=== PATIENT | female | born 1945 | race African-American/Black ===

== ENCOUNTER 2017-02-01 17:44 | Inpatient (IN) | payer MEDICARE, MEDICAID ==
[~2017-02-01] VITALS: Ht 157.5 cm; Wt 115.7 kg
[~2017-02-01 17:44] MED LIST: ACET-3161; ALBU90AE IH; ALLOPURINOL PO; ASPI-1159 PO; CARVEDILOL PO; CLOP75TA33 PO; DUONEB3 ML INH; HYDRALAZINE PO; LIPITOR PO; LORAZEPAM PO; LOSA25TA3 PO; PANTOPRAZOLE SODIUM; PARI1CAP PO; SYN175 PO; VENLAFAXINE; ZOLP5TAB2 PO; [UNRECOGNIZED DRUG - CODE] IJ
[2017-02-01 19:33] LABS: HEMATOCRIT. 33.8 % (36.0-48.0); HEMOGLOBIN. 11.5 g/dL (12.0-16.0); MEAN CORPUSCULAR VOLUME 96.8 fL (81.0-99.0); MEAN PLATELET VOLUME 9.3 fl (7.4-10.4); PLATELET 180 x1000/uL (130-400); RED BLOOD CELL COUNT 3.49 mill/uL (4.2-5.4); RED CELL DISTRIBUTION WIDTH 14.9 % (11.6-14.6)
[2017-02-01 19:42] LABS: INR 1.2
[2017-02-01 19:45] LABS: CHLORIDE 95 mEq/L (98-107)
[2017-02-01 19:50] LABS: CARBON DIOXIDE 25 mEq/L (21-32)
[2017-02-01 19:51] LABS: AMMONIA < 25 uMol/L (<32)
[2017-02-01 19:52] LABS: ETHANOL BLOOD < 10 mg/dL
[2017-02-01 19:58] LABS: TROPONIN I 0.12 ng/mL (0.00-0.04)
[2017-02-01] MEDS ORDERED: DEXTROSE 50% WATER 50ML SYRINGE IV ONE (20:15)
[2017-02-01] MEDS ORDERED: INSULIN REGULAR (HUMULIN R) 300UNITS/3ML IV ONE (20:15)
[2017-02-01] MEDS ORDERED: SODIUM BICARBONATE 8.4% 1 MEQ/ML 50ML SYR IV ONE (20:15)
[2017-02-01] MEDS ORDERED: CALCIUM CHLORIDE 1GM/10ML SYR IV ONE (20:15)
[2017-02-01] MEDS ORDERED: SODIUM POLYSTYRENE SULFONATE 15 G/60 ML BOT PO ONE (20:15)
[2017-02-01] MEDS ORDERED: ASPIRIN 325MG TABLET PO NR (20:15)
[2017-02-01 20:21] LABS: PLATELET ESTIMATE NORMAL
[2017-02-01] MEDS ORDERED: DIPHENHYDRAMINE 50MG/ML VIAL IV PRN (21:30)
[2017-02-01] MEDS ORDERED: CLONIDINE 0.1MG TABLET PO PRN (21:30)
[2017-02-01] MEDS ORDERED: ONDANSETRON HCL 4MG/2ML VIAL IV PRN (21:30)
[2017-02-01] MEDS ORDERED: NA PHOS,M-B/NA PHOS,DI-BA ENEMA 118ML PR PRN (21:30)
[2017-02-01] MEDS ORDERED: DEXTROSE 50% WATER 50ML SYRINGE IV PRN (21:30)
[2017-02-01] MEDS ORDERED: IPRATROPIUM/ALBUTEROL 0.5-3(2.5)MG/3ML NEB INH PRN (21:30)
[2017-02-01] MEDS ORDERED: LORAZEPAM 0.5MG TABLET PO PRN (21:30)
[2017-02-01] MEDS ORDERED: MAGNESIUM/ALUMINUM HYDROXIDE/SIMETHICONE 30ML UDC PO PRN (21:30)
[2017-02-01] MEDS ORDERED: NITROGLYCERIN 0.4MG TABLET SL SL PRN (21:30)
[2017-02-01] MEDS ORDERED: TRAMADOL 50MG TABLET PO PRN (21:30)
[2017-02-01 22:50] VITALS: BP 125/48
[2017-02-01] MEDS ORDERED: ZOLPIDEM TARTRATE 5MG TABLET PO PRN (23:00)
[2017-02-01 23:47] VITALS: BP 125/48
[2017-02-02] MEDS: ENOXAPARIN 30MG/0.3ML SYR SUBCUT SCH ×2 (00:42→22:14)
[2017-02-02] MEDS ORDERED: CEFTRIAXONE 1 G PREMIX 50 ML IV SCH (01:00)
[2017-02-02 01:06] LABS: CREATINE KINASE MB FRACTION 3.2 ng/mL (0.5-3.6); TROPONIN I 0.12 ng/mL (0.00-0.04)
[2017-02-02 04:00] VITALS: BP 135/51
[2017-02-02] MEDS: BLOOD SUGAR DIAGNOSTIC STRIP TEST SCH ×4 (07:40→21:53)
[2017-02-02 08:00] VITALS: BP 130/49
[2017-02-02] MEDS: INSULIN LISPRO 100 UNITS/ML SUBCUT SCH ×4 (08:03→22:15)
[2017-02-02] MEDS: AMLODIPINE 10MG TABLET PO SCH (09:00)
[2017-02-02] MEDS: FOLIC ACID/VITAMIN B COMP W-C TABLET PO SCH (09:57)
[2017-02-02] MEDS: GUAIFENESIN/DM 600MG/30MG ER TAB 12HR PO SCH ×2 (09:57→22:14)
[2017-02-02] MEDS: LEVOTHYROXINE SODIUM 175MCG TABLET PO SCH (09:58)
[2017-02-02] MEDS: CLOPIDOGREL 75MG TABLET PO SCH (09:58)
[2017-02-02] MEDS: ASPIRIN 325MG EC TABLET PO SCH (09:58)
[2017-02-02] MEDS: FAMOTIDINE 20MG/2ML VIAL IV SCH (09:58)
[2017-02-02] MEDS: SEVELAMER CARBONATE 800 MG TABLET PO SCH ×3 (09:58→17:56)
[2017-02-02 10:31] LABS: CREATINE KINASE MB FRACTION 2.1 ng/mL (0.5-3.6); TROPONIN I 0.08 ng/mL (0.00-0.04)
[2017-02-02 12:00] VITALS: BP 151/62
[2017-02-02 15:46] VITALS: BP 137/62
[2017-02-02] MEDS: GUAIFENESIN 200MG/10ML SUGAR FREE UDC PO PRN (17:56)
[2017-02-02 19:30] VITALS: BP 157/66
[2017-02-02 20:00] VITALS: BP_SYST 146; BP_SYST 152; BP_DIAS 52; BP_DIAS 67
[2017-02-02] MEDS: ACETAMINOPHEN 325MG TABLET PO PRN (20:14)
[2017-02-02] MEDS: DOCUSATE SODIUM 100MG CAPSULE PO PRN (22:14)
[2017-02-03] VITALS: BP 121/53
[2017-02-03] MEDS: CEFTRIAXONE 1 G PREMIX 50 ML IV SCH (01:48)
[2017-02-03 04:00] VITALS: BP 140/65
[2017-02-03] MEDS: BLOOD SUGAR DIAGNOSTIC STRIP TEST SCH ×4 (05:44→21:38)
[2017-02-03 08:00] VITALS: BP 129/47
[2017-02-03] MEDS: CLOPIDOGREL 75MG TABLET PO SCH (09:01)
[2017-02-03] MEDS: SEVELAMER CARBONATE 800 MG TABLET PO SCH ×3 (09:01→19:08)
[2017-02-03] MEDS: GUAIFENESIN/DM 600MG/30MG ER TAB 12HR PO SCH ×2 (09:01→20:46)
[2017-02-03] MEDS: ASPIRIN 325MG EC TABLET PO SCH (09:01)
[2017-02-03] MEDS: FOLIC ACID/VITAMIN B COMP W-C TABLET PO SCH (09:01)
[2017-02-03] MEDS: LEVOTHYROXINE SODIUM 175MCG TABLET PO SCH (09:01)
[2017-02-03] MEDS: AMLODIPINE 10MG TABLET PO SCH (09:02)
[2017-02-03] MEDS: FAMOTIDINE 20MG/2ML VIAL IV SCH (09:02)
[2017-02-03] MEDS: INSULIN LISPRO 100 UNITS/ML SUBCUT SCH ×4 (09:07→22:00)
[2017-02-03 12:00] VITALS: BP_SYST 134; BP_SYST 140; BP_DIAS 29; BP_DIAS 48
[2017-02-03 16:00] VITALS: BP 139/59
[2017-02-03] MEDS: ACETAMINOPHEN 325MG TABLET PO PRN (17:33)
[2017-02-03 20:00] VITALS: BP 119/54
[2017-02-03] MEDS: ENOXAPARIN 30MG/0.3ML SYR SUBCUT SCH (20:47)
[2017-02-03] MEDS: DOCUSATE SODIUM 100MG CAPSULE PO PRN (20:47)
[2017-02-04] VITALS: BP 110/50
[2017-02-04] MEDS: CEFTRIAXONE 1 G PREMIX 50 ML IV SCH (00:54)
[2017-02-04 04:00] VITALS: BP 120/51
[2017-02-04] MEDS: BLOOD SUGAR DIAGNOSTIC STRIP TEST SCH ×3 (05:19→17:00)
[2017-02-04 08:00] VITALS: BP 143/57
[2017-02-04] MEDS: FOLIC ACID/VITAMIN B COMP W-C TABLET PO SCH ×2 (10:10→10:13)
[2017-02-04] MEDS: CLOPIDOGREL 75MG TABLET PO SCH ×4 (10:10→11:28)
[2017-02-04] MEDS: DOCUSATE SODIUM 100MG CAPSULE PO PRN (10:10)
[2017-02-04] MEDS: SEVELAMER CARBONATE 800 MG TABLET PO SCH ×3 (10:10→16:37)
[2017-02-04] MEDS: GUAIFENESIN/DM 600MG/30MG ER TAB 12HR PO SCH ×2 (10:10→10:13)
[2017-02-04] MEDS: FAMOTIDINE 20MG/2ML VIAL IV SCH ×2 (10:11→10:13)
[2017-02-04] MEDS: LEVOTHYROXINE SODIUM 175MCG TABLET PO SCH (10:20)
[2017-02-04] MEDS: INSULIN LISPRO 100 UNITS/ML SUBCUT SCH ×3 (10:28→17:01)
[2017-02-04 12:00] VITALS: BP 129/55
[2017-02-04 16:00] VITALS: BP 130/63
[2017-02-04] MEDS: ASPIRIN 325MG EC TABLET PO SCH (16:36)
[2017-02-04] MEDS: AMLODIPINE 10MG TABLET PO SCH (16:37)
[2017-02-04] MEDS: GUAIFENESIN 200MG/10ML SUGAR FREE UDC PO PRN (17:38)
[2017-02-04 17:54] VITALS: BP 130/63
== END 2017-02-04 18:40 | disposition home or self-care (01) | DRG 91 ==
LOC: ER 18:03 → 7WST 20:25 → SUPCPDRO 21:17 → ENRESERV 21:32
PROVIDERS: ADMIT Internal Medicine; ATTEND Internal Medicine
PROC: 5A1D70Z Performance of Urinary Filtration, Intermittent, Less than 6 Hours Per Day (ICD-10-PCS; principal; 2017-02-02)
PROC: 5A1D70Z Performance of Urinary Filtration, Intermittent, Less than 6 Hours Per Day (ICD-10-PCS; 2017-02-04)
DX: G92 Toxic encephalopathy (principal); N18.6 End stage renal disease; I13.2 Hypertensive heart and chronic kidney disease with heart failure and with stage 5 chronic kidney disease, or end stage renal disease; E11.22 Type 2 diabetes mellitus with diabetic chronic kidney disease; E11.65 Type 2 diabetes mellitus with hyperglycemia; E87.1 Hypo-osmolality and hyponatremia; I50.30 Unspecified diastolic (congestive) heart failure; Z68.42 Body mass index [BMI] 45.0-49.9, adult; E03.9 Hypothyroidism, unspecified; E87.70 Fluid overload, unspecified; I25.10 Atherosclerotic heart disease of native coronary artery without angina pectoris; J44.9 Chronic obstructive pulmonary disease, unspecified; E66.9 Obesity, unspecified; D63.8 Anemia in other chronic diseases classified elsewhere; G47.00 Insomnia, unspecified; Z79.82 Long term (current) use of aspirin; Z79.899 Other long term (current) drug therapy; Z99.2 Dependence on renal dialysis
CPT/HCPCS: 36415; 70450; 70551; 71010; 80053; 80061; 80307; 80329; 82140; 82550; 82553; 82962; 83036; 83690; 83880; 84443; 84484; 85025; 85610; 93005; 93970; 99291; G0482; J0696; J1650; J1815; J3490; J7030; J7050

== ENCOUNTER 2018-04-23 09:36 | Inpatient (IN) | payer MEDICARE, MEDICAID ==
[~2018-04-23] VITALS: Ht 154.9 cm; Wt 114.8 kg
[2018-04-23] MEDS ORDERED: IPRATROPIUM BROMIDE (0.02%) 0.5MG/2.5ML NEB HHN STA (10:27)
[2018-04-23] MEDS ORDERED: METHYLPREDNISOLONE SOD SUCC 125 MG/2 ML VIAL IV STA (10:27)
[2018-04-23] MEDS ORDERED: MAGNESIUM 2 G PREMIX 50 ML IV ONE (10:30)
[2018-04-23 10:49] LABS: BASOPHILS % 0.8 % (0.0-2.0); EOSINOPHILS % 2.8 % (0.0-5.0); HEMATOCRIT. 33.4 % (36.0-48.0); HEMOGLOBIN. 11.1 g/dL (12.0-16.0); LYMPHOCYTES % 21.8 % (20.0-50.0); MEAN CORPUSCULAR HEMOGLOBIN 34.1 pg (28.0-32.0); MEAN CORPUSCULAR VOLUME 102.5 fL (81.0-99.0); MONOCYTES % 7.6 % (2.0-8.0); PLATELET 133 x1000/uL (130-400); RED BLOOD CELL COUNT 3.26 mill/uL (4.2-5.4); RED CELL DISTRIBUTION WIDTH 15.4 % (11.6-14.6)
[2018-04-23] MEDS: ALBUTEROL (0.083%) 2.5MG/3ML NEB HHN SCH ×3 (10:49→11:37)
[2018-04-23 10:56] LABS: CHLORIDE 97 mEq/L (98-107)
[2018-04-23] MEDS ORDERED: LEVOFLOXACIN 750MG PREMIX 150 ML IV ONE (12:15)
[2018-04-23] MEDS ORDERED: MAGNESIUM/ALUMINUM HYDROXIDE/SIMETHICONE 30ML UDC PO PRN (12:30)
[2018-04-23] MEDS ORDERED: ENOXAPARIN 40MG/0.4ML SYR SUBCUT SCH (12:30)
[2018-04-23] MEDS ORDERED: ONDANSETRON HCL 4MG/2ML INJ IV PRN (12:30)
[2018-04-23] MEDS ORDERED: GUAIFENESIN 200MG/10ML SUGAR FREE UDC PO PRN (12:30)
[2018-04-23] MEDS ORDERED: METHYLPREDNISOLONE SOD SUCC 125 MG/2 ML VIAL IV SCH (12:30)
[2018-04-23] MEDS ORDERED: LEVOFLOXACIN 500MG PREMIX 100 ML IV SCH (12:30)
[2018-04-23] MEDS ORDERED: DIPHENHYDRAMINE 50MG/ML VIAL IV PRN (12:30)
[2018-04-23] MEDS ORDERED: CLONIDINE 0.1MG TABLET PO PRN (12:30)
[2018-04-23] MEDS ORDERED: IPRATROPIUM/ALBUTEROL 0.5-3(2.5)MG/3ML NEB INH PRN (12:30)
[2018-04-23] MEDS ORDERED: ACETAMINOPHEN 325MG TABLET PO PRN (12:30)
[2018-04-23] MEDS ORDERED: HYDROCODONE/ACETAMINOPHEN 5/325MG TABLET PO PRN (12:30)
[2018-04-23] MEDS ORDERED: DOCUSATE SODIUM 100MG CAPSULE PO PRN (12:30)
[2018-04-23] MEDS ORDERED: LORAZEPAM 2MG/ML CPJ IV PRN (12:30)
[2018-04-23] MEDS: ASPIRIN 81MG EC TABLET PO SCH (12:55)
[2018-04-23] MEDS ORDERED: IPRATROPIUM/ALBUTEROL 0.5-3(2.5)MG/3ML NEB HHN PRN (13:15)
[2018-04-23] MEDS ORDERED: NITROGLYCERIN OINT 1GM/INCH UDPKT TD SCH (14:00)
[2018-04-23] MEDS ORDERED: BUDESONIDE 0.5MG/2ML NEB HHN SCH (16:45)
[2018-04-23] MEDS ORDERED: IPRATROPIUM/ALBUTEROL 0.5-3(2.5)MG/3ML NEB HHN SCH (18:00)
[2018-04-23] MEDS ORDERED: MORPHINE SULFATE 4 MG/ML CPJ (NOT FOR IM USE) IV PRN (19:14)
[2018-04-23] MEDS ORDERED: NA PHOS,M-B/NA PHOS,DI-BA ENEMA 118ML PR PRN (21:00)
[2018-04-23 21:50] VITALS: BP 132/88
[2018-04-23] MEDS: NITROGLYCERIN OINT 1GM/INCH UDPKT TD SCH (23:08)
[2018-04-23] MEDS ORDERED: TRAZ150T78 PO (23:15)
[2018-04-23] MEDS ORDERED: LISI2.5T47 PO (23:18)
[2018-04-23] MEDS ORDERED: METO25TA6 PO (23:18)
[2018-04-24] MEDS ORDERED: TRAZODONE HCL 100MG TABLET PO PRN
[2018-04-24 00:11] VITALS: BP 134/60
[2018-04-24] MEDS: TRAZODONE HCL 100MG TABLET PO SCH ×2 (01:21→22:30)
[2018-04-24 04:00] VITALS: BP 116/43
[2018-04-24] MEDS: IPRATROPIUM/ALBUTEROL 0.5-3(2.5)MG/3ML NEB HHN SCH ×4 (04:07→21:25)
[2018-04-24] MEDS: NITROGLYCERIN OINT 1GM/INCH UDPKT TD SCH ×3 (05:32→22:00)
[2018-04-24] MEDS ORDERED: DEXTROSE 50% WATER 50ML SYRINGE IV PRN (06:45)
[2018-04-24] MEDS: BLOOD SUGAR DIAGNOSTIC STRIP TEST SCH ×4 (07:07→21:04)
[2018-04-24] MEDS: INSULIN LISPRO 100 UNITS/ML SUBCUT SCH ×4 (08:10→21:00)
[2018-04-24] MEDS: BUDESONIDE 0.5MG/2ML NEB HHN SCH ×2 (08:28→21:25)
[2018-04-24] MEDS ORDERED: ENOXAPARIN 30MG/0.3ML SYR SUBCUT SCH (09:00)
[2018-04-24 10:28] LABS: CHLORIDE 102 mEq/L (98-107)
[2018-04-24 10:37] LABS: LDL CHOLESTEROL 156 mg/dL (5-100)
[2018-04-24 10:40] LABS: HDL CHOLESTEROL 66 mg/dL (40-59); T4 FREE 0.28 ng/dL (0.76-1.46)
[2018-04-24 12:00] VITALS: BP 108/66
[2018-04-24] MEDS: LEVOTHYROXINE SODIUM 175MCG TABLET PO SCH (13:49)
[2018-04-24 15:23] LABS: BASOPHILS % 0.4 % (0.0-2.0); EOSINOPHILS % 0.6 % (0.0-5.0); HEMATOCRIT. 30.7 % (36.0-48.0); HEMOGLOBIN. 10.3 g/dL (12.0-16.0); LYMPHOCYTES % 14.9 % (20.0-50.0); MEAN CORPUSCULAR HEMOGLOBIN 34.4 pg (28.0-32.0); MEAN CORPUSCULAR VOLUME 102.6 fL (81.0-99.0); MEAN PLATELET VOLUME 9.9 fl (7.4-10.4); MONOCYTES % 8.6 % (2.0-8.0); NEUTROPHILS % 75.5 % (40.0-76.0); PLATELET 129 x1000/uL (130-400); RED BLOOD CELL COUNT 2.99 mill/uL (4.2-5.4); RED CELL DISTRIBUTION WIDTH 15.4 % (11.6-14.6)
[2018-04-24 16:00] VITALS: BP_SYST 113; BP_SYST 95; BP_DIAS 29; BP_DIAS 52
[2018-04-24 20:00] VITALS: BP 97/47
[2018-04-25] VITALS: BP 110/60
[2018-04-25] MEDS: IPRATROPIUM/ALBUTEROL 0.5-3(2.5)MG/3ML NEB HHN SCH ×4 (01:25→21:43)
[2018-04-25 04:00] VITALS: BP 108/49
[2018-04-25] MEDS: NITROGLYCERIN OINT 1GM/INCH UDPKT TD SCH (06:00)
[2018-04-25] MEDS: LEVOTHYROXINE SODIUM 175MCG TABLET PO SCH (06:30)
[2018-04-25] MEDS: BLOOD SUGAR DIAGNOSTIC STRIP TEST SCH ×4 (06:30→21:19)
[2018-04-25] MEDS: INSULIN LISPRO 100 UNITS/ML SUBCUT SCH ×4 (06:31→21:00)
[2018-04-25] MEDS: BUDESONIDE 0.5MG/2ML NEB HHN SCH ×2 (07:38→21:43)
[2018-04-25 08:00] VITALS: BP 114/44
[2018-04-25] MEDS: ASPIRIN 81MG EC TABLET PO SCH (08:21)
[2018-04-25] MEDS ORDERED: ENOXAPARIN 40MG/0.4ML SYR SUBCUT SCH (09:00)
[2018-04-25 12:00] VITALS: BP 113/42
[2018-04-25 12:19] VITALS: BP 113/42
[2018-04-25 20:00] VITALS: BP 131/49
[2018-04-25] MEDS ORDERED: AMLODIPINE 2.5MG TABLET PO SCH (21:00)
[2018-04-25] MEDS: TRAZODONE HCL 100MG TABLET PO SCH (21:19)
[2018-04-26] VITALS: BP 104/39
[2018-04-26 01:42] LABS: BASOPHILS % 0.7 % (0.0-2.0); EOSINOPHILS % 2.4 % (0.0-5.0); HEMATOCRIT. 25.3 % (36.0-48.0); HEMOGLOBIN. 8.5 g/dL (12.0-16.0); LYMPHOCYTES % 27.3 % (20.0-50.0); MEAN CORPUSCULAR HEMOGLOBIN 35.1 pg (28.0-32.0); MEAN CORPUSCULAR VOLUME 103.9 fL (81.0-99.0); MEAN PLATELET VOLUME 10.1 fl (7.4-10.4); MONOCYTES % 10.9 % (2.0-8.0); NEUTROPHILS % 58.7 % (40.0-76.0); PLATELET 106 x1000/uL (130-400); RED BLOOD CELL COUNT 2.44 mill/uL (4.2-5.4); RED CELL DISTRIBUTION WIDTH 15.5 % (11.6-14.6)
[2018-04-26] MEDS: IPRATROPIUM/ALBUTEROL 0.5-3(2.5)MG/3ML NEB HHN SCH ×2 (02:35→07:53)
[2018-04-26 04:00] VITALS: BP 110/63
[2018-04-26] MEDS: BLOOD SUGAR DIAGNOSTIC STRIP TEST SCH (06:20)
[2018-04-26] MEDS: INSULIN LISPRO 100 UNITS/ML SUBCUT SCH (06:20)
[2018-04-26] MEDS ORDERED: LEVOTHYROXINE SODIUM 200MCG TABLET PO SCH (07:40)
[2018-04-26] MEDS: BUDESONIDE 0.5MG/2ML NEB HHN SCH (07:53)
[2018-04-26 08:00] VITALS: BP 104/46
[2018-04-26] MEDS: ASPIRIN 81MG EC TABLET PO SCH (09:21)
[2018-04-26 11:14] VITALS: BP 104/46
[2018-04-26 12:00] VITALS: BP 110/43
== END 2018-04-26 12:55 | disposition home or self-care (01) | DRG 291 ==
LOC: ER 09:56 → 7WST 12:09 → ENRESERV 20:30
PROVIDERS: ADMIT Internal Medicine; ATTEND Internal Medicine
PROC: 5A1D70Z Performance of Urinary Filtration, Intermittent, Less than 6 Hours Per Day (ICD-10-PCS; 2018-04-23)
PROC: 5A1D70Z Performance of Urinary Filtration, Intermittent, Less than 6 Hours Per Day (ICD-10-PCS; 2018-04-24)
PROC: 5A1D70Z Performance of Urinary Filtration, Intermittent, Less than 6 Hours Per Day (ICD-10-PCS; principal; 2018-04-25)
DX: I13.2 Hypertensive heart and chronic kidney disease with heart failure and with stage 5 chronic kidney disease, or end stage renal disease (principal); J96.00 Acute respiratory failure, unspecified whether with hypoxia or hypercapnia; N18.6 End stage renal disease; I50.43 Acute on chronic combined systolic (congestive) and diastolic (congestive) heart failure; R65.10 Systemic inflammatory response syndrome (SIRS) of non-infectious origin without acute organ dysfunction; E46 Unspecified protein-calorie malnutrition; J44.1 Chronic obstructive pulmonary disease with (acute) exacerbation; Z68.42 Body mass index [BMI] 45.0-49.9, adult; E78.5 Hyperlipidemia, unspecified; I27.20 Pulmonary hypertension, unspecified; E66.09 Other obesity due to excess calories; E11.22 Type 2 diabetes mellitus with diabetic chronic kidney disease; E89.0 Postprocedural hypothyroidism; H54.62 Unqualified visual loss, left eye, normal vision right eye; H91.90 Unspecified hearing loss, unspecified ear; D63.8 Anemia in other chronic diseases classified elsewhere; I08.1 Rheumatic disorders of both mitral and tricuspid valves; I25.10 Atherosclerotic heart disease of native coronary artery without angina pectoris; I25.5 Ischemic cardiomyopathy; M19.90 Unspecified osteoarthritis, unspecified site; Z79.4 Long term (current) use of insulin; Z86.73 Personal history of transient ischemic attack (TIA), and cerebral infarction without residual deficits; I25.2 Old myocardial infarction; Z87.440 Personal history of urinary (tract) infections; Z95.5 Presence of coronary angioplasty implant and graft; Z99.2 Dependence on renal dialysis; Z79.82 Long term (current) use of aspirin; Z79.899 Other long term (current) drug therapy
CPT/HCPCS: 36415; 71045; 80048; 80061; 82962; 83880; 84439; 84443; 84484; 87804; 93005; 93306; 94003; 94640; 96365; 96375; 99285; J1650; J1815; J1956; J2930; J3475; J7611; J7620; J7626

== ENCOUNTER 2018-09-25 09:15 | Emergency (ER) | payer MEDICARE, MEDICAID ==
[~2018-09-25] VITALS: Ht 162.6 cm; Wt 112.0 kg
[~2018-09-25 09:15] MED LIST changes: -ASPI-1159 PO; +ASPI-1393 PO; +LISI2.5T47 PO; +METO25TA6 PO; +TRAZ150T78 PO; -ZOLP5TAB2 PO
[2018-09-25 10:53] LABS: BASOPHILS % 0.9 % (0.0-2.0); EOSINOPHILS % 1.2 % (0.0-5.0); HEMATOCRIT. 34.8 % (36.0-48.0); HEMOGLOBIN. 11.5 g/dL (12.0-16.0); LYMPHOCYTES % 15.6 % (20.0-50.0); MEAN CORPUSCULAR HEMOGLOBIN 34.1 pg (28.0-32.0); MEAN CORPUSCULAR VOLUME 103.5 fL (81.0-99.0); MEAN PLATELET VOLUME 10.6 fl (7.4-10.4); MONOCYTES % 9.7 % (2.0-8.0); NEUTROPHILS % 72.6 % (40.0-76.0); PLATELET 74 x1000/uL (130-400); RED BLOOD CELL COUNT 3.36 mill/uL (4.2-5.4); RED CELL DISTRIBUTION WIDTH 17.9 % (11.6-14.6)
[2018-09-25 10:58] LABS: CHLORIDE 93 mEq/L (98-107)
[2018-09-25 10:59] LABS: INR 1.2; PROTHROMBIN TIME 12.7 sec (9.6-11.0)
[2018-09-25 12:35] VITALS: BP 128/72
== END 2018-09-25 12:39 | disposition home or self-care (01) ==
LOC: ER 09:15
DX: S80.821A Blister (nonthermal), right lower leg, initial encounter (principal); R10.9 Unspecified abdominal pain; I13.2 Hypertensive heart and chronic kidney disease with heart failure and with stage 5 chronic kidney disease, or end stage renal disease; E11.22 Type 2 diabetes mellitus with diabetic chronic kidney disease; N18.6 End stage renal disease; I50.9 Heart failure, unspecified; Z99.2 Dependence on renal dialysis; R60.0 Localized edema; F03.90 Unspecified dementia, unspecified severity, without behavioral disturbance, psychotic disturbance, mood disturbance, and anxiety; N28.1 Cyst of kidney, acquired; E87.3 Alkalosis; D69.6 Thrombocytopenia, unspecified; D53.9 Nutritional anemia, unspecified; Z79.899 Other long term (current) drug therapy; Z90.89 Acquired absence of other organs; Z79.82 Long term (current) use of aspirin; X58.XXXA Exposure to other specified factors, initial encounter; Y93.89 Activity, other specified; Y92.89 Other specified places as the place of occurrence of the external cause; Y99.8 Other external cause status
CPT/HCPCS: 36415; 71045; 74176; 93005; 99284

== ENCOUNTER 2018-12-18 10:43 | Inpatient (IN) | payer MEDICARE, MEDICAID ==
[~2018-12-18] VITALS: Ht 167.6 cm; Wt 116.1 kg
[2018-12-18] VITALS (22 sets, daily range): BP systolic 66–148; BP diastolic 18–95
[2018-12-18] MEDS ORDERED: GENTAMICIN 80MG PREMIX 100 ML IV ONE (11:15)
[2018-12-18] MEDS: VANCOMYCIN 1 G PREMIX 200 ML IV SCH ×2 (11:20→11:40)
[2018-12-18 11:30] LABS: EOSINOPHILS % 1.6 % (0.0-5.0); HEMATOCRIT. 39.7 % (36.0-48.0); HEMOGLOBIN. 13.1 g/dL (12.0-16.0); LYMPHOCYTES % 14.9 % (20.0-50.0); MEAN CORPUSCULAR HEMOGLOBIN 33.9 pg (28.0-32.0); MEAN CORPUSCULAR VOLUME 103.1 fL (81.0-99.0); MEAN PLATELET VOLUME 10.2 fl (7.4-10.4); NEUTROPHILS % 71.5 % (40.0-76.0); PLATELET 121 x1000/uL (130-400); RED BLOOD CELL COUNT 3.86 mill/uL (4.2-5.4); RED CELL DISTRIBUTION WIDTH 18.6 % (11.6-14.6)
[2018-12-18 11:35] LABS: CHLORIDE 102 mEq/L (98-107)
[2018-12-18 11:41] LABS: PHOSPHORUS 5.7 mg/dL (2.5-4.9)
[2018-12-18] MEDS ORDERED: SODIUM CHLORIDE 0.9% 1000ML BAG (SEPSIS BOLUS) IV ONE (12:00)
[2018-12-18 12:39] LABS: INR 1.2; PROTHROMBIN TIME 12.8 sec (9.6-11.0)
[2018-12-18] MEDS ORDERED: INFLUENZA VIRUS VACCINE(AFLURIA) 0.5ML SYR IM ONE (16:45)
[2018-12-18] MEDS ORDERED: DEXTROSE 50% WATER 50ML SYRINGE IV PRN ×2 (18:00)
[2018-12-18] MEDS ORDERED: ACETAMINOPHEN 325MG TABLET PO PRN (18:00)
[2018-12-18] MEDS ORDERED: MAGNESIUM/ALUMINUM HYDROXIDE/SIMETHICONE 30ML UDC PO PRN (18:00)
[2018-12-18] MEDS ORDERED: ONDANSETRON HCL 4MG/2ML INJ IV PRN (18:00)
[2018-12-18] MEDS ORDERED: NOREPINEPHRINE 4 MG in DEXT 5% WATER 246 ML IV PRN (18:03)
[2018-12-18 18:09] LABS: BG BASE EXCESS -3.9 mmol/L (-2.0-2.0); BG CARBOXYHEMOGLOBIN 1.5 % (0.5-1.5); BG DEOXYHEMOGLOBIN 0.8 % (0.0-5.0); BG FRACTION INSPIRED OXYGEN 32; BG HCO3 ACT 20.2 mmol/L (22.0-26.0); BG METHEMOGLOBIN 0.3 % (0.0-1.5); BG OXYGEN SATURATION 99.2 % (92.0-98.5); BG OXYHEMOGLOBIN 97.4 % (94.0-97.0); BG PCO2 34.1 mmHg (35.0-45.0); BG PH 7.391 (7.350-7.450); BG PO2 171.8 mmHg (75.0-100.0); BG SAMPLE SITE LEFT RADIAL; BG TOTAL HEMOGLOBIN 13.4 g/dL (12.0-18.0); BG VENT MODE NASAL CANNULA
[2018-12-18] MEDS ORDERED: PIPERACILLIN/TAZOBACTAM 3.375 G in DEXT 5% WATER 100 ML IV SCH (18:15)
[2018-12-18] MEDS ORDERED: SODIUM POLYSTYRENE SULFONATE 15 G/60 ML BOT PO NR (19:00)
[2018-12-18] MEDS ORDERED: PIPERACILLIN/TAZOBACTAM 3.375 G in DEXT 5% WATER 100 ML IV NR (19:00)
[2018-12-18] MEDS: NOREPINEPHRINE 4 MG in DEXTROSE 5% WATER 250 ML IV PRN ×2 (19:45→19:47)
[2018-12-18] MEDS ORDERED: VANCOMYCIN 1 G PREMIX 200 ML IV NR (20:00)
[2018-12-18] MEDS: BLOOD SUGAR DIAGNOSTIC STRIP TEST SCH (21:24)
[2018-12-18] MEDS: INSULIN LISPRO 100 UNITS/ML SUBCUT SCH (21:24)
[2018-12-18] MEDS ORDERED: DILTIAZEM HCL 5MG/ML 5ML VIAL IV NR (22:00)
[2018-12-18] MEDS ORDERED: DILTIAZEM HCL 125 MG in DEXT 5% WATER 100 ML IV PRN (22:00)
[2018-12-18] MEDS ORDERED: MORPHINE SULFATE 2 MG/ML CPJ (NOT FOR IM USE) IV PRN (22:00)
[2018-12-19] VITALS (89 sets, daily range): BP systolic 53–153; BP diastolic 32–92
[2018-12-19] MEDS: PIPERACILLIN/TAZOBACTAM 2.25 G in DEXTROSE 5% WATER 50 ML IV SCH ×3 (04:05→20:21)
[2018-12-19 06:22] LABS: BASOPHILS % 0.9 % (0.0-2.0); EOSINOPHILS % 2.3 % (0.0-5.0); HEMOGLOBIN. 12.3 g/dL (12.0-16.0); LYMPHOCYTES % 16.1 % (20.0-50.0); MEAN CORPUSCULAR HEMOGLOBIN 33.8 pg (28.0-32.0); MEAN CORPUSCULAR VOLUME 101.9 fL (81.0-99.0); MEAN PLATELET VOLUME 10.9 fl (7.4-10.4); MONOCYTES % 10.1 % (2.0-8.0); NEUTROPHILS % 70.6 % (40.0-76.0); PLATELET 148 x1000/uL (130-400); RED BLOOD CELL COUNT 3.63 mill/uL (4.2-5.4); RED CELL DISTRIBUTION WIDTH 18.4 % (11.6-14.6)
[2018-12-19] MEDS: BLOOD SUGAR DIAGNOSTIC STRIP TEST SCH ×4 (07:50→21:28)
[2018-12-19] MEDS ORDERED: LEVOTHYROXINE SODIUM 175MCG TABLET PO SCH (09:00)
[2018-12-19] MEDS: INSULIN LISPRO 100 UNITS/ML SUBCUT SCH ×4 (09:16→21:27)
[2018-12-19] MEDS ORDERED: LEVOTHYROXINE SODIUM 200MCG TABLET PO SCH (09:30)
[2018-12-19] MEDS: NOREPINEPHRINE 4 MG in DEXTROSE 5% WATER 250 ML IV PRN ×2 (09:49→18:16)
[2018-12-19] MEDS ORDERED: AMIODARONE HCL 900 MG in DEXT 5% WATER 482 ML IV PRN (10:45)
[2018-12-19] MEDS: AMIODARONE HCL 900 MG in DEXT 5% WATER 482 ML IV SCH (12:45)
[2018-12-20] VITALS (100 sets, daily range): BP systolic 67–181; BP diastolic 25–157
[2018-12-20] MEDS: PIPERACILLIN/TAZOBACTAM 2.25 G in DEXTROSE 5% WATER 50 ML IV SCH ×3 (03:17→21:21)
[2018-12-20] MEDS: NOREPINEPHRINE 4 MG in DEXTROSE 5% WATER 250 ML IV PRN (05:10)
[2018-12-20 06:10] LABS: BASOPHILS % 1.2 % (0.0-2.0); EOSINOPHILS % 2.1 % (0.0-5.0); HEMATOCRIT. 37.1 % (36.0-48.0); HEMOGLOBIN. 12.3 g/dL (12.0-16.0); LYMPHOCYTES % 18.1 % (20.0-50.0); MEAN CORPUSCULAR HEMOGLOBIN 33.9 pg (28.0-32.0); MEAN CORPUSCULAR VOLUME 102.3 fL (81.0-99.0); MEAN PLATELET VOLUME 10.7 fl (7.4-10.4); MONOCYTES % 12.1 % (2.0-8.0); NEUTROPHILS % 66.5 % (40.0-76.0); PLATELET 125 x1000/uL (130-400); RED BLOOD CELL COUNT 3.62 mill/uL (4.2-5.4); RED CELL DISTRIBUTION WIDTH 18.7 % (11.6-14.6)
[2018-12-20 06:29] LABS: PHOSPHORUS 6.3 mg/dL (2.5-4.9)
[2018-12-20] MEDS: BLOOD SUGAR DIAGNOSTIC STRIP TEST SCH ×4 (07:58→21:19)
[2018-12-20] MEDS: INSULIN LISPRO 100 UNITS/ML SUBCUT SCH ×4 (07:59→21:00)
[2018-12-20] MEDS: AMIODARONE HCL 900 MG in DEXT 5% WATER 482 ML IV SCH (08:02)
[2018-12-20] MEDS: LIOTHYRONINE SODIUM 5MCG TABLET PO SCH ×2 (09:00→18:02)
[2018-12-20] MEDS: LEVOTHYROXINE SODIUM 100 MCG/ VIAL IV SCH (09:23)
[2018-12-20] MEDS ORDERED: NOREPINEPHRINE 4 MG in DEXT 5% WATER 246 ML IV PRN (10:29)
[2018-12-20] MEDS ORDERED: AMIODARONE HCL 900 MG in DEXT 5% WATER 482 ML IV SCH (10:30)
[2018-12-20] MEDS: DEXT 5%/0.45% NACL 1000ML 1,000 ML IV SCH (21:22)
[2018-12-21] VITALS (69 sets, daily range): BP systolic 52–126; BP diastolic 25–87
[2018-12-21] MEDS: PIPERACILLIN/TAZOBACTAM 2.25 G in DEXTROSE 5% WATER 50 ML IV SCH ×2 (04:37→12:21)
[2018-12-21 07:08] LABS: BASOPHILS % 0.7 % (0.0-2.0); EOSINOPHILS % 0.9 % (0.0-5.0); HEMATOCRIT. 39.3 % (36.0-48.0); HEMOGLOBIN. 12.8 g/dL (12.0-16.0); LYMPHOCYTES % 17.6 % (20.0-50.0); MEAN CORPUSCULAR HEMOGLOBIN 33.6 pg (28.0-32.0); MEAN CORPUSCULAR VOLUME 102.9 fL (81.0-99.0); MEAN PLATELET VOLUME 11.3 fl (7.4-10.4); NEUTROPHILS % 69.8 % (40.0-76.0); PLATELET 118 x1000/uL (130-400); RED BLOOD CELL COUNT 3.82 mill/uL (4.2-5.4); RED CELL DISTRIBUTION WIDTH 19.4 % (11.6-14.6)
[2018-12-21 07:12] LABS: PHOSPHORUS 7.1 mg/dL (2.5-4.9)
[2018-12-21] MEDS: BLOOD SUGAR DIAGNOSTIC STRIP TEST SCH ×4 (07:50→21:31)
[2018-12-21] MEDS: INSULIN LISPRO 100 UNITS/ML SUBCUT SCH ×4 (08:20→21:00)
[2018-12-21] MEDS: LEVOTHYROXINE SODIUM 100 MCG/ VIAL IV SCH (10:35)
[2018-12-21] MEDS: LIOTHYRONINE SODIUM 5MCG TABLET PO SCH ×2 (12:46→17:45)
[2018-12-21] MEDS: AMIODARONE HCL 200 MG TABLET PO SCH ×2 (12:47→21:33)
[2018-12-21 13:49] LABS: HEMATOCRIT. 38.2 % (36.0-48.0); HEMOGLOBIN. 12.6 g/dL (12.0-16.0); MEAN CORPUSCULAR HEMOGLOBIN 34.1 pg (28.0-32.0); MEAN CORPUSCULAR VOLUME 102.9 fL (81.0-99.0); MEAN PLATELET VOLUME 10.6 fl (7.4-10.4); PLATELET 94 x1000/uL (130-400); RED BLOOD CELL COUNT 3.71 mill/uL (4.2-5.4); RED CELL DISTRIBUTION WIDTH 18.3 % (11.6-14.6)
[2018-12-21 14:15] LABS: PLATELET ESTIMATE DECREASED
[2018-12-22] VITALS (38 sets, daily range): BP systolic 61–125; BP diastolic 27–92
[2018-12-22] MEDS: DEXT 5%/0.45% NACL 1000ML 1,000 ML IV SCH ×2 (00:15→19:20)
[2018-12-22] MEDS: BLOOD SUGAR DIAGNOSTIC STRIP TEST SCH ×5 (07:00→20:01)
[2018-12-22 07:19] LABS: CHLORIDE 103 mEq/L (98-107)
[2018-12-22 08:33] LABS: BG BASE EXCESS -5.9 mmol/L (-2.0-2.0); BG CARBOXYHEMOGLOBIN 1.2 % (0.5-1.5); BG DEOXYHEMOGLOBIN 7.5 % (0.0-5.0); BG FRACTION INSPIRED OXYGEN 21; BG HCO3 ACT 19.2 mmol/L (22.0-26.0); BG METHEMOGLOBIN 0.1 % (0.0-1.5); BG OXYGEN SATURATION 92.4 % (92.0-98.5); BG OXYHEMOGLOBIN 91.2 % (94.0-97.0); BG PCO2 36.4 mmHg (35.0-45.0); BG PO2 70.1 mmHg (75.0-100.0); BG SAMPLE SITE RIGHT BRACHIAL; BG VENT MODE ROOM AIR
[2018-12-22] MEDS: LIOTHYRONINE SODIUM 5MCG TABLET PO SCH ×2 (08:40→18:15)
[2018-12-22] MEDS: AMIODARONE HCL 200 MG TABLET PO SCH ×2 (08:40→20:00)
[2018-12-22] MEDS: INSULIN LISPRO 100 UNITS/ML SUBCUT SCH ×4 (08:42→20:01)
[2018-12-22] MEDS: LEVOTHYROXINE SODIUM 100 MCG/ VIAL IV SCH (10:25)
[2018-12-22] MEDS ORDERED: VANCOMYCIN 1250MG in DEXTROSE 5% WATER 250ML IV NR (12:00)
[2018-12-23] VITALS (12 sets, daily range): BP systolic 86–124; BP diastolic 35–76
[2018-12-23] MEDS: DEXT 5%/0.45% NACL 1000ML 1,000 ML IV SCH ×2 (00:25→21:22)
[2018-12-23] MEDS: BLOOD SUGAR DIAGNOSTIC STRIP TEST SCH ×4 (06:02→21:21)
[2018-12-23 08:06] LABS: BASOPHILS % 0.8 % (0.0-2.0); EOSINOPHILS % 2.1 % (0.0-5.0); LYMPHOCYTES % 13.4 % (20.0-50.0); MEAN CORPUSCULAR HEMOGLOBIN 33.6 pg (28.0-32.0); MEAN CORPUSCULAR VOLUME 103.9 fL (81.0-99.0); MONOCYTES % 11.4 % (2.0-8.0); NEUTROPHILS % 72.3 % (40.0-76.0); PLATELET 81 x1000/uL (130-400); RED BLOOD CELL COUNT 3.85 mill/uL (4.2-5.4); RED CELL DISTRIBUTION WIDTH 19.7 % (11.6-14.6)
[2018-12-23] MEDS: LIOTHYRONINE SODIUM 5MCG TABLET PO SCH ×2 (09:13→17:34)
[2018-12-23] MEDS: AMIODARONE HCL 200 MG TABLET NG SCH ×2 (09:13→21:21)
[2018-12-23] MEDS: INSULIN LISPRO 100 UNITS/ML SUBCUT SCH ×4 (09:13→21:22)
[2018-12-23] MEDS ORDERED: HEPARIN SODIUM 1,000 UNIT/1ML VIAL IV NR (11:00)
[2018-12-23] MEDS: LEVOTHYROXINE SODIUM 100 MCG/ VIAL IV SCH (18:00)
[2018-12-24] VITALS (12 sets, daily range): BP systolic 97–119; BP diastolic 50–82
[2018-12-24 05:52] LABS: BASOPHILS % 0.9 % (0.0-2.0); EOSINOPHILS % 2.4 % (0.0-5.0); HEMATOCRIT. 37.7 % (36.0-48.0); HEMOGLOBIN. 12.4 g/dL (12.0-16.0); LYMPHOCYTES % 12.8 % (20.0-50.0); MEAN CORPUSCULAR HEMOGLOBIN 33.9 pg (28.0-32.0); MEAN CORPUSCULAR VOLUME 102.6 fL (81.0-99.0); MEAN PLATELET VOLUME 10.6 fl (7.4-10.4); MONOCYTES % 11.8 % (2.0-8.0); NEUTROPHILS % 72.1 % (40.0-76.0); PLATELET 74 x1000/uL (130-400); RED BLOOD CELL COUNT 3.67 mill/uL (4.2-5.4); RED CELL DISTRIBUTION WIDTH 19.6 % (11.6-14.6)
[2018-12-24] MEDS: BLOOD SUGAR DIAGNOSTIC STRIP TEST SCH ×4 (06:42→21:19)
[2018-12-24] MEDS: INSULIN LISPRO 100 UNITS/ML SUBCUT SCH ×4 (06:42→21:19)
[2018-12-24] MEDS: LIOTHYRONINE SODIUM 5MCG TABLET PO SCH ×2 (09:25→17:24)
[2018-12-24] MEDS: AMIODARONE HCL 200 MG TABLET NG SCH ×2 (09:25→21:17)
[2018-12-24] MEDS: LEVOTHYROXINE SODIUM 100 MCG/ VIAL IV SCH (09:25)
[2018-12-24] MEDS: DEXT 5%/0.45% NACL 1000ML 1,000 ML IV SCH (23:20)
[2018-12-25] VITALS (16 sets, daily range): BP systolic 80–133; BP diastolic 45–98
[2018-12-25] MEDS: BLOOD SUGAR DIAGNOSTIC STRIP TEST SCH ×4 (06:41→20:43)
[2018-12-25] MEDS: INSULIN LISPRO 100 UNITS/ML SUBCUT SCH ×4 (07:20→20:42)
[2018-12-25] MEDS: LIOTHYRONINE SODIUM 5MCG TABLET PO SCH ×2 (08:49→16:49)
[2018-12-25] MEDS: AMIODARONE HCL 200 MG TABLET NG SCH ×2 (08:49→20:43)
[2018-12-25] MEDS: LEVOTHYROXINE SODIUM 100 MCG/ VIAL IV SCH (13:15)
[2018-12-25] MEDS: DEXT 5%/0.45% NACL 1000ML 1,000 ML IV SCH (15:31)
[2018-12-26] VITALS (17 sets, daily range): BP systolic 84–142; BP diastolic 37–85
[2018-12-26] MEDS: BLOOD SUGAR DIAGNOSTIC STRIP TEST SCH ×4 (07:01→21:00)
[2018-12-26 07:21] LABS: BASOPHILS % 1.1 % (0.0-2.0); EOSINOPHILS % 3.8 % (0.0-5.0); HEMOGLOBIN. 12.9 g/dL (12.0-16.0); LYMPHOCYTES % 20.6 % (20.0-50.0); MEAN CORPUSCULAR HEMOGLOBIN 33.8 pg (28.0-32.0); MEAN CORPUSCULAR VOLUME 102.2 fL (81.0-99.0); MEAN PLATELET VOLUME 11.9 fl (7.4-10.4); MONOCYTES % 14.1 % (2.0-8.0); NEUTROPHILS % 60.4 % (40.0-76.0); PLATELET 73 x1000/uL (130-400); RED BLOOD CELL COUNT 3.81 mill/uL (4.2-5.4); RED CELL DISTRIBUTION WIDTH 19.8 % (11.6-14.6)
[2018-12-26] MEDS: LIOTHYRONINE SODIUM 5MCG TABLET PO SCH ×2 (08:33→18:48)
[2018-12-26] MEDS: LEVOTHYROXINE SODIUM 100 MCG/ VIAL IV SCH (08:33)
[2018-12-26] MEDS: AMIODARONE HCL 200 MG TABLET NG SCH ×2 (08:33→21:00)
[2018-12-26] MEDS: INSULIN LISPRO 100 UNITS/ML SUBCUT SCH ×4 (08:35→21:38)
[2018-12-26] MEDS: DEXT 5%/0.45% NACL 1000ML 1,000 ML IV SCH (09:08)
[2018-12-26] MEDS ORDERED: DEXTROSE 50% WATER 50ML SYRINGE IV PRN (09:45)
[2018-12-26] MEDS ORDERED: LIDOCAINE HCL 1% 20ML VIAL (Pyxis) INJ ONE (09:58)
[2018-12-26] MEDS ORDERED: SODIUM BICARBONATE 4% (2.4MEQ) 5ML VIAL IV ONE (09:58)
[2018-12-26] MEDS ORDERED: IOHEXOL-300 50 ML BOTTLE IV ONE (09:59)
[2018-12-26 10:08] LABS: T4 FREE 1.01 ng/dL (0.76-1.46)
[2018-12-26] MEDS ORDERED: HEPARIN 1000 UNITS/ML 10ML ONE (10:19)
[2018-12-26 10:35] LABS: FOLIC ACID (FOLATE) SERUM > 20.00 ng/mL (>5.38); VITAMIN B12 SERUM > 2000.0 pg/mL (211-911)
[2018-12-26] MEDS: ASPIRIN 81MG EC TABLET PO SCH (13:02)
[2018-12-26] MEDS: CARVEDILOL 3.125 MG TABLET PO SCH ×2 (13:02→21:00)
[2018-12-26] MEDS ORDERED: VANCOMYCIN 1250MG in DEXTROSE 5% WATER 250ML IV NR (21:00)
[2018-12-26] MEDS ORDERED: ATORVASTATIN CALCIUM 40MG TABLET PO SCH (21:00)
[2018-12-26] MEDS ORDERED: INSULIN GLARGINE UD 100 UNITS/ML SYR SUBCUT SCH (22:00)
[2018-12-26] MEDS ORDERED: ALBUMIN HUMAN 25GM/100ML (25%) IV NR (22:00)
[2018-12-27] VITALS (11 sets, daily range): BP systolic 92–136; BP diastolic 40–98
[2018-12-27] MEDS: BLOOD SUGAR DIAGNOSTIC STRIP TEST SCH ×3 (06:06→16:45)
[2018-12-27] MEDS: LIOTHYRONINE SODIUM 5MCG TABLET PO SCH ×2 (08:43→16:45)
[2018-12-27] MEDS: AMIODARONE HCL 200 MG TABLET NG SCH (08:43)
[2018-12-27] MEDS: ASPIRIN 81MG EC TABLET PO SCH (08:43)
[2018-12-27] MEDS: LEVOTHYROXINE SODIUM 100 MCG/ VIAL IV SCH (08:44)
[2018-12-27] MEDS: INSULIN LISPRO 100 UNITS/ML SUBCUT SCH ×3 (08:58→17:20)
[2018-12-27] MEDS: CARVEDILOL 3.125 MG TABLET PO SCH (09:00)
[2018-12-27 09:43] LABS: HEMATOCRIT. 39.2 % (36.0-48.0); HEMOGLOBIN. 12.8 g/dL (12.0-16.0); MEAN CORPUSCULAR HEMOGLOBIN 33.8 pg (28.0-32.0); MEAN CORPUSCULAR VOLUME 103.3 fL (81.0-99.0); MEAN PLATELET VOLUME 10.9 fl (7.4-10.4); PLATELET 63 x1000/uL (130-400); RED CELL DISTRIBUTION WIDTH 20.1 % (11.6-14.6)
[2018-12-27 17:13] LABS: NUCLEATED RED BLOOD CELLS 1 /100 WBC
[2018-12-27 17:15] LABS: PLATELET ESTIMATE DECREASED
== END 2018-12-27 19:35 | DRG 314 ==
LOC: ER 10:48 → 3WST 11:40 → EDBEDREQ 11:42 → EDBEDREQTM 11:42 → ENRESERV 13:21 → CVICU 18:32 → 3WST 12-22 16:39
PROVIDERS: ADMIT Family Medicine Adult Medicine; ATTEND Family Medicine Adult Medicine
PROC: 02HV33Z Insertion of Infusion Device into Superior Vena Cava, Percutaneous Approach (ICD-10-PCS; 2018-12-18)
PROC: B548ZZA Ultrasonography of Superior Vena Cava, Guidance (ICD-10-PCS; 2018-12-18)
PROC: 5A1D70Z Performance of Urinary Filtration, Intermittent, Less than 6 Hours Per Day (ICD-10-PCS; 2018-12-18)
PROC: 0JPV3XZ Removal of Tunneled Vascular Access Device from Upper Extremity Subcutaneous Tissue and Fascia, Percutaneous Approach (ICD-10-PCS; 2018-12-18)
PROC: 06HY33Z Insertion of Infusion Device into Lower Vein, Percutaneous Approach (ICD-10-PCS; 2018-12-20)
PROC: B54CZZA Ultrasonography of Left Lower Extremity Veins, Guidance (ICD-10-PCS; 2018-12-20)
PROC: 5A1D70Z Performance of Urinary Filtration, Intermittent, Less than 6 Hours Per Day (ICD-10-PCS; 2018-12-21)
PROC: 5A1D70Z Performance of Urinary Filtration, Intermittent, Less than 6 Hours Per Day (ICD-10-PCS; 2018-12-23)
PROC: 5A1D70Z Performance of Urinary Filtration, Intermittent, Less than 6 Hours Per Day (ICD-10-PCS; 2018-12-25)
PROC: B51M1ZZ Fluoroscopy of Right Upper Extremity Veins using Low Osmolar Contrast (ICD-10-PCS; 2018-12-26)
PROC: 4A10X4Z Monitoring of Central Nervous Electrical Activity, External Approach (ICD-10-PCS; principal; 2018-12-27)
DX: T80.211A Bloodstream infection due to central venous catheter, initial encounter (principal); J96.00 Acute respiratory failure, unspecified whether with hypoxia or hypercapnia; N18.6 End stage renal disease; R65.21 Severe sepsis with septic shock; G82.50 Quadriplegia, unspecified; G92 Toxic encephalopathy; A41.02 Sepsis due to Methicillin resistant Staphylococcus aureus; E44.1 Mild protein-calorie malnutrition; E87.1 Hypo-osmolality and hyponatremia; I50.22 Chronic systolic (congestive) heart failure; L97.819 Non-pressure chronic ulcer of other part of right lower leg with unspecified severity; I31.3 Pericardial effusion (noninflammatory); I13.2 Hypertensive heart and chronic kidney disease with heart failure and with stage 5 chronic kidney disease, or end stage renal disease; L97.809 Non-pressure chronic ulcer of other part of unspecified lower leg with unspecified severity; T82.868A Thrombosis due to vascular prosthetic devices, implants and grafts, initial encounter; Z68.41 Body mass index [BMI] 40.0-44.9, adult; E87.5 Hyperkalemia; I48.91 Unspecified atrial fibrillation; Z53.9 Procedure and treatment not carried out, unspecified reason; R13.10 Dysphagia, unspecified; M10.9 Gout, unspecified; J44.9 Chronic obstructive pulmonary disease, unspecified; I25.5 Ischemic cardiomyopathy; I27.20 Pulmonary hypertension, unspecified; I25.10 Atherosclerotic heart disease of native coronary artery without angina pectoris; I08.1 Rheumatic disorders of both mitral and tricuspid valves; H54.62 Unqualified visual loss, left eye, normal vision right eye; F03.90 Unspecified dementia, unspecified severity, without behavioral disturbance, psychotic disturbance, mood disturbance, and anxiety; E11.22 Type 2 diabetes mellitus with diabetic chronic kidney disease; D69.6 Thrombocytopenia, unspecified; D63.8 Anemia in other chronic diseases classified elsewhere; E78.5 Hyperlipidemia, unspecified; E89.0 Postprocedural hypothyroidism; E66.01 Morbid (severe) obesity due to excess calories; E11.40 Type 2 diabetes mellitus with diabetic neuropathy, unspecified; R74.0 Nonspecific elevation of levels of transaminase and lactic acid dehydrogenase [LDH]; F41.9 Anxiety disorder, unspecified; Y83.8 Other surgical procedures as the cause of abnormal reaction of the patient, or of later complication, without mention of misadventure at the time of the procedure; F32.9 Major depressive disorder, single episode, unspecified; L89.150 Pressure ulcer of sacral region, unstageable; E11.319 Type 2 diabetes mellitus with unspecified diabetic retinopathy without macular edema; Z99.2 Dependence on renal dialysis; Z87.440 Personal history of urinary (tract) infections; Z86.73 Personal history of transient ischemic attack (TIA), and cerebral infarction without residual deficits; Z85.850 Personal history of malignant neoplasm of thyroid; Z83.3 Family history of diabetes mellitus; Z82.49 Family history of ischemic heart disease and other diseases of the circulatory system; Z82.3 Family history of stroke; I25.2 Old myocardial infarction; Z78.1 Physical restraint status; Z79.899 Other long term (current) drug therapy; Z79.4 Long term (current) use of insulin; Z79.82 Long term (current) use of aspirin; Y92.89 Other specified places as the place of occurrence of the external cause
CPT/HCPCS: 36415; 36556; 36589; 36600; 36902; 70551; 71045; 76937; 80048; 80061; 80076; 80202; 82140; 82375; 82550; 82607; 82746; 82805; 82962; 83036; 83605; 83735; 84100; 84134; 84145; 84439; 84443; 84481; 84484; 87070; 87077; 90686; 92523; 92610; 93005; 93306; 93970; 97163; 97166; 99285; C1725; C1752; C1769; J0282; J1580; J1644; J1815; J2270; J2543; J3370; J3490; J7030; J7060; P9047; Q9967; A4315